=== PATIENT | male | born 2000 | race Caucasian/White ===

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

== ENCOUNTER 2020-03-23 04:06 | Emergency (ER) | payer SELFPAY ==
[~2020-03-23] VITALS: Ht 177.8 cm; Wt 94.1 kg
[~2020-03-23 04:06] MED LIST changes: +ATARAX 25MG25 MG/TAB PO; +ATIVAN 1MG T1 MG/TAB PO
[2020-03-23 04:51] LABS: BASO # 0.1 (0.0-0.2); BASO % 0.8 % (0.0-2.0); EOS # 0.1 (0.0-0.7); EOS % 1.5 % (0-4.0); GRAN # 6.2 (1.4-6.5); GRAN % 66.9 % (42.2-75.2); HEMATOCRIT 45.3 % (36.0-47.0); HEMOGLOBIN 15.2 g/dl (12.5-16.1); LYMPH # 2.1 (1.2-3.4); LYMPH % 22.3 % (20.0-51.0); MEAN CELL VOLUME 94 fl (80.0-95.0); MEAN CORPUSCULAR HEMOGLOBIN 31 pg (26.0-32.0); MEAN CORPUSCULAR HGB CONC 34 g/dl (33.0-37.0); MEAN PLATELET VOLUME 9.4 fl (7.4-10.4); MONO # 0.8 (0.1-0.6); MONO % 8.3 % (1.7-9.3); PLATELET COUNT 309 K/mm3 (130-400); RED BLOOD COUNT 4.84 M/mm3 (4.20-5.60); REDCELL DISTRIBUTION WIDTH-CV 13.2 % (11.5-14.5)
[2020-03-23] MEDS ORDERED: AMOXICILLIN 8751 TAB PO (05:30)
[2020-03-23] MEDS ORDERED: NORCO 325 MG-51 TAB PO (05:30)
[2020-03-23 07:11] VITALS: BP 115/75; PULSE 80; TEMP 98.9
== END 2020-03-23 07:14 | disposition home or self-care (01) ==
LOC: COL.ER 04:06
PROVIDERS: Emergency Medicine
DX: L02.512 Cutaneous abscess of left hand (principal); Y04.1XXA Assault by human bite, initial encounter
CPT/HCPCS: J0295

== ENCOUNTER 2021-11-19 15:29 | Emergency (ER) | payer SELFPAY ==
[~2021-11-19] VITALS: Ht 177.8 cm; Wt 100.0 kg
[~2021-11-19 15:29] MED LIST changes: +AMOXICILLIN 8751 TAB PO; +NORCO 325 MG-51 TAB PO
[2021-11-19 15:43] VITALS: TEMP 98.7
[2021-11-19 16:15] LABS: BASO # 0.1 K/mm3 (0.0-0.2); EOS # 0.1 K/mm3 (0.0-0.7); GRAN % 49.4 % (42.2-75.2); HEMATOCRIT 43.3 % (42.0-52.0); HEMOGLOBIN 14.7 g/dl (13.5-18.0); LYMPH # 2.3 K/mm3 (1.2-3.4); LYMPH % 38.6 % (20.0-51.0); MEAN CELL VOLUME 93 fl (80.0-100.0); MEAN CORPUSCULAR HEMOGLOBIN 32 pg (27-31); MEAN CORPUSCULAR HGB CONC 34 g/dl (33.0-37.0); MEAN PLATELET VOLUME 9.1 fl (7.4-10.4); MONO # 0.5 K/mm3 (0.1-0.6); MONO % 8.7 % (1.7-9.3); PLATELET COUNT 330 K/mm3 (130-400); RED BLOOD COUNT 4.64 M/mm3 (4.20-5.60); REDCELL DISTRIBUTION WIDTH-CV 12.3 % (11.5-14.5)
[2021-11-19 16:35] LABS: ALBUMIN 4.2 gm/dL (3.5-5.0); BILIRUBIN,TOTAL 0.7 mg/dL (0.2-1.2); CREATININE, serum 0.91 mg/dL (0.72-1.25); POTASSIUM 3.8 mmol/L (3.5-4.5)
[2021-11-19] MEDS ORDERED: PRIL40 PO (17:07)
[2021-11-19 17:19] LABS: COLLECTION METHOD CLEAN CATCH
[2021-11-19 17:30] VITALS: BP 117/63; PULSE 69
[2021-11-19 17:35] LABS: PH 8 (5-8); SQUAMOUS EPITHELIAL None Seen /hpf (0-10); URINE APPEARANCE Clear (CLEAR/HAZY); URINE BACTERIA None Seen /hpf (NONE SEEN); URINE BILIRUBIN Negative (NEGATIVE); URINE BLOOD Negative (NEGATIVE); URINE COLOR Straw (YELLOW); URINE GLUCOSE Negative (NEGATIVE); URINE KETONE Negative (NEGATIVE); URINE LEUKOCYTE ESTERASE Negative (NEGATIVE); URINE NITRATE Negative (NEGATIVE); URINE PROTEIN(semi-quant) Negative (NEGATIVE); URINE RBC 0-2 /hpf (0-2); URINE UROBILINOGEN Negative (NEGATIVE)
== END 2021-11-19 17:45 | disposition home or self-care (01) ==
LOC: COL.ER 15:29
PROVIDERS: Nurse Practitioner Primary Care
DX: K29.70 Gastritis, unspecified, without bleeding (principal); F17.210 Nicotine dependence, cigarettes, uncomplicated; Z28.310 Unvaccinated for COVID-19
CPT/HCPCS: J2405; J7030

== ENCOUNTER 2021-12-24 16:45 | Emergency (ER) | payer SELFPAY ==
[~2021-12-24] VITALS: Ht 177.8 cm; Wt 100.0 kg
[~2021-12-24 16:45] MED LIST changes: +PRIL40 PO
[2021-12-24 16:58] VITALS: TEMP 98.2
[2021-12-24 17:36] LABS: BASO # 0.1 K/mm3 (0.0-0.2); BASO % 1.1 % (0.0-2.0); EOS # 0.1 K/mm3 (0.0-0.7); EOS % 2.1 % (0.0-4.0); GRAN # 3.1 K/mm3 (1.4-6.5); GRAN % 53.6 % (42.2-75.2); HEMATOCRIT 41.8 % (42.0-52.0); HEMOGLOBIN 14.2 g/dl (13.5-18.0); LYMPH # 1.9 K/mm3 (1.2-3.4); LYMPH % 32.8 % (20.0-51.0); MEAN CELL VOLUME 91 fl (80.0-100.0); MEAN CORPUSCULAR HEMOGLOBIN 31 pg (27-31); MEAN CORPUSCULAR HGB CONC 34 g/dl (33.0-37.0); MEAN PLATELET VOLUME 9.1 fl (7.4-10.4); MONO # 0.6 K/mm3 (0.1-0.6); PLATELET COUNT 314 K/mm3 (130-400); RED BLOOD COUNT 4.61 M/mm3 (4.20-5.60); REDCELL DISTRIBUTION WIDTH-CV 12.1 % (11.5-14.5)
[2021-12-24 17:51] LABS: ALANINE AMINOTRANSFERASE 20 U/L (0-55); ALBUMIN 4.5 gm/dL (3.5-5.0); ALKALINE PHOSPHATASE 54 U/L (40-150); ANION GAP 13 mmol/L (7-16); AST,SGOT 19 U/L (5-34); BILIRUBIN,TOTAL 0.6 mg/dL (0.2-1.2); BLOOD UREA NITROGEN 11 mg/dL (9-21); CALCIUM 9.6 mg/dL (8.4-10.2); CARBON DIOXIDE 24 mmol/L (22-29); CHLORIDE 103 mmol/L (98-107); CREATININE, serum 1.18 mg/dL (0.72-1.25); GLUCOSE 97 mg/dL (70-99); POTASSIUM 4.2 mmol/L (3.5-4.5); SODIUM 140 mmol/L (136-145); TOTAL PROTEIN 7.9 gm/dL (6.2-8.1)
[2021-12-24 18:01] LABS: TROPONIN-I < 0.010 ng/mL (0.00-0.033)
[2021-12-24] MEDS ORDERED: PRILOSEC 20MG20 MG PO (18:21)
[2021-12-24 19:02] VITALS: BP 125/78; PULSE 69
== END 2021-12-24 20:07 | disposition home or self-care (01) ==
LOC: COL.ER 16:45
PROVIDERS: Emergency Medicine
DX: R10.11 Right upper quadrant pain (principal); R07.89 Other chest pain; Z28.310 Unvaccinated for COVID-19
CPT/HCPCS: Q9967

== ENCOUNTER 2022-01-30 05:35 | Emergency (ER) | payer SELFPAY ==
[~2022-01-30] VITALS: Ht 177.8 cm; Wt 102.3 kg
[~2022-01-30 05:35] MED LIST changes: +PRILOSEC 20MG20 MG PO
[2022-01-30 05:39] VITALS: BP 141/115; TEMP 98.3
[2022-01-30 06:47] VITALS: PULSE 79
== END 2022-01-30 06:47 | disposition home or self-care (01) ==
LOC: COL.ER 05:35
DX: S61.210A Laceration without foreign body of right index finger without damage to nail, initial encounter (principal); F17.210 Nicotine dependence, cigarettes, uncomplicated; Z28.310 Unvaccinated for COVID-19; W26.0XXA Contact with knife, initial encounter; Y93.G3 Activity, cooking and baking

== ENCOUNTER 2022-07-14 15:51 | Emergency (ER) | payer OTHER ==
[~2022-07-14] VITALS: Ht 177.8 cm; Wt 104.5 kg
[2022-07-14 16:01] VITALS: TEMP 98.5
[2022-07-14 17:06] VITALS: PULSE 77
== END 2022-07-14 17:06 | disposition home or self-care (01) ==
LOC: COL.ER 15:51
DX: S16.1XXA Strain of muscle, fascia and tendon at neck level, initial encounter (principal); Z28.310 Unvaccinated for COVID-19; X50.1XXA Overexertion from prolonged static or awkward postures, initial encounter

== ENCOUNTER 2023-07-21 03:12 | Emergency (ER) | payer OTHER ==
[~2023-07-21] VITALS: Ht 177.8 cm; Wt 108.6 kg
[~2023-07-21 03:12] MED LIST changes: +CARAFATE 1GM1 G PO; +NEXIUM 40MG40 MG PO
[2023-07-21 03:18] VITALS: TEMP 98.6
[2023-07-21 03:49] LABS: COLLECTION METHOD CLEAN CATCH
[2023-07-21 04:06] LABS: TRICYCLIC ANTIDEPRESS URINE NEGATIVE (NEGATIVE)
[2023-07-21 04:07] LABS: BASO # 0.1 K/mm3 (0.0-0.2); BASO % 0.6 % (0.0-2.0); EOS # 0.1 K/mm3 (0.0-0.7); EOS % 1.6 % (0.0-4.0); GRAN # 5.9 K/mm3 (1.4-6.5); GRAN % 71.8 % (42.2-75.2); HEMATOCRIT 43.6 % (42.0-52.0); LYMPH # 1.5 K/mm3 (1.2-3.4); LYMPH % 18.2 % (20.0-51.0); MEAN CELL VOLUME 90 fl (80.0-100.0); MEAN CORPUSCULAR HEMOGLOBIN 31 pg (27-31); MEAN CORPUSCULAR HGB CONC 34 g/dl (33.0-37.0); MEAN PLATELET VOLUME 9.3 fl (7.4-10.4); MONO # 0.6 K/mm3 (0.1-0.6); MONO % 7.7 % (1.7-9.3); PLATELET COUNT 260 K/mm3 (130-400); RED BLOOD COUNT 4.83 M/mm3 (4.20-5.60); REDCELL DISTRIBUTION WIDTH-CV 12.6 % (11.5-14.5)
[2023-07-21 04:09] LABS: URINE APPEARANCE Clear (CLEAR/HAZY); URINE BLOOD Negative (NEGATIVE); URINE COLOR Yellow (YELLOW); URINE GLUCOSE Negative (NEGATIVE); URINE KETONE Negative (NEGATIVE); URINE NITRATE Negative (NEGATIVE); URINE PROTEIN(semi-quant) Negative (NEGATIVE); URINE UROBILINOGEN 0.2 E.U/dL (0.2-1.0)
[2023-07-21 04:10] LABS: SQUAMOUS EPITHELIAL None Seen /hpf (0-10); URINE BACTERIA None Seen /hpf (NONE SEEN); URINE RBC None Seen /hpf (0-2)
[2023-07-21 04:19] LABS: ACETAMINOPHEN < 7.0 ug/mL (10-30); ALANINE AMINOTRANSFERASE 24 U/L (0-55); ALBUMIN 4.1 gm/dL (3.5-5.0); ALCOHOL(ethanol),MEDICAL 208 mg/dL (0-10); ALKALINE PHOSPHATASE 54 U/L (40-150); ANION GAP 12 mmol/L (7-16); AST,SGOT 31 U/L (5-34); BILIRUBIN,TOTAL 0.4 mg/dL (0.2-1.2); BLOOD UREA NITROGEN 9 mg/dL (9-21); CARBON DIOXIDE 20 mmol/L (22-29); CHLORIDE 112 mmol/L (98-107); CREATININE, serum 0.93 mg/dL (0.72-1.25); GLUCOSE 98 mg/dL (70-99); POTASSIUM 3.6 mmol/L (3.5-4.5); SODIUM 144 mmol/L (136-145); TOTAL PROTEIN 7.1 gm/dL (6.2-8.1)
[2023-07-21 04:23] LABS: SALICYLATE < 5.0 mg/dL (15.0-30.0)
[2023-07-21 12:58] VITALS: BP 128/62; PULSE 68
== END 2023-07-21 12:59 | disposition home or self-care (01) ==
LOC: COL.ER 03:12
PROVIDERS: Emergency Medicine
DX: S11.91XA Laceration without foreign body of unspecified part of neck, initial encounter (principal); F32.A Depression, unspecified; F10.129 Alcohol abuse with intoxication, unspecified; F17.290 Nicotine dependence, other tobacco product, uncomplicated; Y90.4 Blood alcohol level of 80-99 mg/100 ml; X78.1XXA Intentional self-harm by knife, initial encounter

== ENCOUNTER 2024-02-16 19:57 | Emergency (ER) | payer SELFPAY ==
[~2024-02-16] VITALS: Ht 177.8 cm; Wt 107.3 kg
[2024-02-16 20:04] VITALS: TEMP 98.3
[2024-02-16] MEDS ORDERED: VOLTAREN 75 DR75 MG PO (20:19)
[2024-02-16] MEDS ORDERED: FLEXERIL 1010 MG/TAB PO (20:19)
[2024-02-16] MEDS ORDERED: MEDROL 4MG DOSPA4 MG PO (20:19)
[2024-02-16] MEDS ORDERED: dexAMETHasone 10 MG/ML VIAL IM ONE (20:30)
[2024-02-16] MEDS ORDERED: Ketorolac 60 MG/2 ML VIAL IM ONE (20:30)
[2024-02-16 20:44] VITALS: BP 143/89; PULSE 87
== END 2024-02-16 20:44 | disposition home or self-care (01) ==
LOC: COL.ER 19:57
DX: S29.012A Strain of muscle and tendon of back wall of thorax, initial encounter (principal); X58.XXXA Exposure to other specified factors, initial encounter
CPT/HCPCS: J1100; J1885; J2360

== ENCOUNTER 2024-03-03 21:34 | Emergency (ER) | payer SELFPAY ==
[~2024-03-03] VITALS: Ht 177.8 cm; Wt 107.3 kg
[~2024-03-03 21:34] MED LIST changes: +MEDROL 4MG DOSPA4 MG PO; +VOLTAREN 75 DR75 MG PO
[2024-03-03 21:47] VITALS: TEMP 98.5
[2024-03-03 23:14] LABS: COLLECTION METHOD CLEAN CATCH
[2024-03-03 23:17] LABS: BASO # 0.1 K/mm3 (0.0-0.2); BASO % 0.8 % (0.0-2.0); EOS # 0.2 K/mm3 (0.0-0.7); GRAN # 4.5 K/mm3 (1.4-6.5); GRAN % 58.1 % (42.2-75.2); HEMATOCRIT 43.3 % (42.0-52.0); HEMOGLOBIN 14.6 g/dl (13.5-18.0); LYMPH # 2.4 K/mm3 (1.2-3.4); LYMPH % 30.9 % (20.0-51.0); MEAN CELL VOLUME 94 fl (80.0-100.0); MEAN CORPUSCULAR HEMOGLOBIN 32 pg (27-31); MEAN CORPUSCULAR HGB CONC 34 g/dl (33.0-37.0); MEAN PLATELET VOLUME 9.1 fl (7.4-10.4); MONO # 0.6 K/mm3 (0.1-0.6); MONO % 8.1 % (1.7-9.3); PLATELET COUNT 287 K/mm3 (130-400); RED BLOOD COUNT 4.63 M/mm3 (4.20-5.60); REDCELL DISTRIBUTION WIDTH-CV 12.6 % (11.5-14.5)
[2024-03-03 23:18] LABS: PH 6.5 (5.0-8.5); URINE APPEARANCE CLEAR (CLEAR/HAZY); URINE BLOOD NEGATIVE (NEGATIVE); URINE COLOR YELLOW (YELLOW); URINE GLUCOSE NEGATIVE (NEGATIVE); URINE KETONE 1+ (NEGATIVE); URINE NITRATE NEGATIVE (NEGATIVE); URINE PROTEIN(semi-quant) NEGATIVE (NEGATIVE)
[2024-03-03 23:38] LABS: BILIRUBIN,TOTAL 0.4 mg/dL (0.2-1.2); CALCIUM 9.2 mg/dL (8.4-10.2); CREATININE, serum 0.89 mg/dL (0.72-1.25); POTASSIUM 3.9 mEq/L (3.5-4.5); TOTAL PROTEIN 6.8 g/dl (6.2-8.1)
[2024-03-04 00:11] VITALS: BP 133/79; PULSE 77
== END 2024-03-04 00:18 | disposition home or self-care (01) ==
LOC: COL.ER 21:34
PROVIDERS: Nurse Practitioner Primary Care
DX: R10.10 Upper abdominal pain, unspecified (principal); K58.9 Irritable bowel syndrome, unspecified; Z87.891 Personal history of nicotine dependence; Z79.899 Other long term (current) drug therapy